=== PATIENT | male | born 1990 | race African-American/Black ===

== ENCOUNTER 2021-06-16 16:07 | Emergency (ER) | payer MEDICAID, OTHER ==
[~2021-06-16] VITALS: Ht 185.4 cm; Wt 77.1 kg
[~2021-06-16 16:07] MED LIST: FERR-7; MES400T; POTA-264
[2021-06-16 16:21] VITALS: BP 120/73
[2021-06-16] MEDS ORDERED: TOBR0.3S OP (16:34)
== END 2021-06-16 16:59 | disposition home or self-care (01) ==
LOC: ER 16:08
DX: S05.01XA Injury of conjunctiva and corneal abrasion without foreign body, right eye, initial encounter (principal); H11.31 Conjunctival hemorrhage, right eye; I10 Essential (primary) hypertension; F17.210 Nicotine dependence, cigarettes, uncomplicated; F12.10 Cannabis abuse, uncomplicated; X58.XXXA Exposure to other specified factors, initial encounter; Y93.89 Activity, other specified; Y92.89 Other specified places as the place of occurrence of the external cause; Y99.8 Other external cause status
CPT/HCPCS: 65222